=== PATIENT | female | born 1960 | race American Indian/Alaskan Native ===

== ENCOUNTER 2018-06-06 19:30 | Emergency (ER) | payer OTHER ==
--- NOTE | 2018-06-06 20:27 | Emergency Department Report ---
Chief Complaint: Chest Pain Stated Complaint: PAIN IN CHEST UNDERARM AND BACK Time Seen by Provider: 06/06/18 20:11 - HPI History of Present Illness: pt presents to the ED with c/o right sided CP that radiates to the back that began this morning she states she has CP daily she states she has edema to the right anterior chest No N/V PMHx HTN, HLD on carvedilol, lisinopril, hctz (+) smoker 1/2 PPD MSE screening note: Focused history performed Due to findings the following was ordered: CP protocol ED Disposition for MSE Condition: Stable
[2018-06-06 20:38] LABS: Basophils % (Auto) 0.9 % (0.0-1.8); Eosinophils # (Auto) 0.1 K/mm3 (0.0-0.4); Eosinophils % (Auto) 2.2 % (0.0-4.3); Hemoglobin 12.3 gm/dl (10.1-14.3); Lymphocytes # (Auto) 2.3 K/mm3 (1.2-5.4); Mean Corpuscular HGB Conc 33 % (30-34); Mean Corpuscular Volume 75 fl (79-97); Monocytes # (Auto) 0.5 K/mm3 (0.0-0.8); Platelet Count 206 K/mm3 (140-440); Red Blood Count 5.08 M/mm3 (3.65-5.03); Red Cell Distribution Width 18.4 % (13.2-15.2)
[2018-06-06 20:51] LABS: INR 0.95 (0.87-1.13)
[2018-06-06 20:52] LABS: Partial Thromboplastin Time 24.9 Sec. (24.2-36.6)
[2018-06-06 21:07] LABS: Alanine Aminotransferase 27 units/L (7-56); Albumin 4.3 g/dL (3.9-5); BUN/Creatinine Ratio 23; Blood Urea Nitrogen 18 mg/dL (7-17); Calcium 10.8 mg/dL (8.4-10.2); Hemolysis Index 9
--- NOTE | 2018-06-06 21:29 | XRay Report ---
PROCEDURE: XR CHEST ROUTINE 2V HISTORY: Chest Pain FINDINGS: Frontal and lateral views of the chest were acquired. There is cardiomegaly. There is no ev idence of congestive heart failure. There is no consolidative pulmonary infiltrate. The lungs are hyp erinflated. IMPRESSION: Cardiomegaly This document is electronically signed by Velasquez Vines MD., June 06 2018 09:27:14 PM ET
--- NOTE | 2018-06-06 23:16 | Emergency Department Report ---
ED General Adult HPI - General Chief complaint: Chest Pain Stated complaint: PAIN IN CHEST UNDERARM AND BACK Time Seen by Provider: 06/06/18 20:11 Source: patient Mode of arrival: Ambulatory Limitations: No Limitations - History of Present Illness Initial comments: 58-year-old -[place] female comes in today for lump on right trapezius and intermittent chest pain all day. Patient reports that she has chest pain daily and will often take an aspirin which she reports to relieve the pain. Patient reports it does not hurt or itch is just uncomfortable. She denies any shortness of breath nausea vomiting or fever. Patient has a past medical h istory hypertension hypercholesterolemia. No surgeries. She is followed by [facility]. Location: neck Worsens with: none Associated Symptoms: chest pain (which is her normal) - Related Data Home Medications Medication Instructions Recorded Confirmed Last Taken Aspirin BABY CHEW TAB 1 tab PO DAILY 12/20/16 12/20/16 Unknown AtorvaSTATin 20 mg PO HS 12/20/16 12/20/16 Unknown Coreg 12.5 mg PO BID 12/20/16 12/20/16 Unknown HCTZ 25 mg PO DAILY 12/20/16 12/20/16 Unknown Lisinopril 20 mg PO DAILY 12/20/16 12/20/16 Unknown Allergies Allergy/AdvReac Type Severity Reaction Status Date / Time codeine Allergy Hives Verified 12/20/16 05:19 ED Review of Systems ROS: Stated complaint: PAIN IN CHEST UNDERARM AND BACK Other details as noted in HPI ED Past Medical Hx - Past Medical History Hx Hypertension: Yes Additional medical history: High Cholesterol - Social History Smoking Status: Current Every Day Smoker Substance Use Type: None - Medications Home Medications: Home Medications Medication Instructions Recorded Confirmed Last Taken Type Aspirin BABY CHEW TAB 1 tab PO DAILY 12/20/16 12/20/16 Unknown History AtorvaSTATin 20 mg PO HS 12/20/16 12/20/16 Unknown History Coreg 12.5 mg PO BID 12/20/16 12/20/16 Unknown History HCTZ 25 mg PO DAILY 12/20/16 12/20/16 Unknown History Lisinopril 20 mg PO DAILY 12/20/16 12/20/16 Unknown History ED Physical Exam - General Limitations: No Limitations General appearance: alert - Head Head exam: Present: atraumatic, normocephalic - Eye Eye exam: Present: normal appearance - ENT ENT exam: Present: mucous membranes moist, other (right side of both the trapeze and neck. Is some soft tissue fullness) - Respiratory Respiratory exam: Present: normal lung sounds bilaterally. Absent: respiratory distress - Cardiovascular Cardiovascular Exam: Present: regular rate, normal rhythm. Absent: systolic murmur, diastolic murmur, rubs, gallop - GI/Abdominal GI/Abdominal exam: Present: soft, normal bowel sounds - Back Exam Back exam: Present: normal inspection, full ROM - Neurological Exam Neurological exam: Present: alert, oriented X3 - Psychiatric Psychiatric exam: Present: normal affect, normal mood - Skin Skin exam: Present: warm, dry, intact, normal color. Absent: rash ED Course Vital Signs 06/06/18 20:23 Temperature 98.6 F Pulse Rate 69 Respiratory 18 Rate Blood Pressure 182/86 O2 Sat by Pulse 98 Oximetry ED Medical Decision Making - Lab Data Result diagrams: 06/06/18 20:30 06/06/18 20:30 Laboratory Tests 06/06/18 06/06/18 06/06/18 20:30 20:30 20:30 WBC 4.9 RBC 5.08 H Hgb 12.3 Hct 38.0 MCV 75 L MCH 24 L MCHC 33 RDW 18.4 H Plt Count 206 Lymph % (Auto) 48.0 H Nuckolls % (Auto) 11.0 H Eos % (Auto) 2.2 Baso % (Auto) 0.9 Lymph # 2.3 Nuckolls # 0.5 Eos # 0.1 Baso # 0.0 Seg Neutrophils % 37.9 L Seg Neutrophils # 1.8 PT 13.3 INR 0.95 APTT 24.9 Sodium 139 Potassium 3.7 Chloride 102.4 Carbon Dioxide 27 Anion Gap 13 BUN 18 H Creatinine 0.8 Estimated GFR > 60 BUN/Creatinine Ratio 23 Glucose 114 H Calcium 10.8 H Total Bilirubin 0.40 AST 24 ALT 27 Alkaline Phosphatase 105 Troponin T < 0.010 Total Protein 7.3 Albumin 4.3 Albumin/Globulin Ratio 1.4 06/06/18 23:26 WBC RBC Hgb Hct MCV MCH MCHC RDW Plt Count Lymph % (Auto) Nuckolls % (Auto) Eos % (Auto) Baso % (Auto) Lymph # Nuckolls # Eos # Baso # Seg Neutrophils % Seg Neutrophils # PT INR APTT Sodium Potassium Chloride Carbon Dioxide Anion Gap BUN Creatinine Estimated GFR BUN/Creatinine Ratio Glucose Calcium Total Bilirubin AST ALT Alkaline Phosphatase Troponin T < 0.010 Total Protein Albumin Albumin/Globulin Ratio - Radiology Data Radiology results: report reviewed Patient: UMAIR BECKER MR#: [id number] : 1960 Acct:[id number] Age/Sex: 58 / F ADM Date: 06/06/18 Loc: ED Attending Dr: Ordering Physician: MEHDI BONE Date of Service: 06/06/18 Procedure(s): XR chest routine 2V Accession Number(s): [id number] cc: MEHDI BONE Fluoro Time In Minutes: PROCEDURE: XR CHEST ROUTINE 2V HISTORY: Chest Pain FINDINGS: Frontal and lateral views of the chest were acquired. There is car diomegaly. There is no evidence of congestive heart failure. There is no consolidative pulmonary in filtrate. The lungs are hyperinflated. IMPRESSION: Cardiomegaly This document is electronically signed by Velasquez Vines MD., June 06 2018 09:27:14 PM ET Transcribed By: JUAN Dictated By: VELASQUEZ VINES MD Electronically Authenticated By: VELASQUEZ VINES MD Signed Date/Time: 06/06/182128 DD/ 00 TD/TT: 06/06/182100 Patient: UMAIR BECKER MR#: [id number] : 1960 Acct:[id number] Age/Sex: 58 / F ADM Date: 06/06/18 Loc: ED Attending Dr: Ordering Physician: MEHDI LE Date of Service: 06/06/18 Procedure(s): CT neck w con Accession Number(s): [id number] cc: MEHDI LE PROCEDURE: CT NECK W CON TECHNIQUE: Routine axial imaging was obtained of the soft tissues of the neck following the intravenous injection of iodinated contrast. Sagittal and coronal reconstructions were reviewed. HISTORY: mass on right side of neck COMPARISONS: None FINDINGS: Images along the skull base reveal patchy mucosal thickening in the ethmoid air cells with secretions in the sphenoid sinus. The mastoid air cells are well pneumatized. The airway appears normal. The parotid and submandibular glands appear normal. There is no evidence of lymphadenopathy in any compartment. The epiglottis and subglottic airway appear normal. The vascular structures enhance normally. The thyroid gland is symmetric in size. There is no evidence of mass or inflammatory process along the base of the neck on the right side or upper shoulder. The nasopharyngeal structures appear normal. The skeletal structures reveal disc degeneration in the mid cervical spine. IMPRESSION: No evidence of any mass or inflammatory process along the base of the neck on the right side and shoulder area. Patchy bilateral ethmoidal sinusitis with secretions in the sphenoid sinus. 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 This document is electronically signed by Caren Caputo MD., June 07 2018 12:1 2:11 AM ET Transcribed By: RB Dictated By: CAREN CAPUTO MD Electronically Authenticated By: CAREN CAPUTO MD Signed Date/Time: 06/07/18 0014 DD/ 52 TD/TT: 06/06/18 6503 - Medical Decision Making Patient has been evaluated by this provider ACC. CT neck shows no acute abnormalities. Chest x-ray shows no acute abnormalities. 2 troponins are negative. Patient is to follow-up with her primary care provider if her symptoms persist or gets worse. Critical care attestation.: If time is entered above; I have spent that time in minutes in the direct care of this critically ill patient, excluding procedure time. ED Disposition Clinical Impression: Fullness of neck, Chest wall discomfort Disposition: DC-01 TO HOME OR SELFCARE Is pt being admited?: No Does the pt Need Aspirin: No Condition: Stable Additional Instructions: Please follow up with her primary care provider if his symptoms persist or gets worse. Your xrays were no acute abnormalities. Referrals: MARIBELL TRUONG MD [Primary Care Provider] - 3-5 Days Forms: Work/School Release Form(ED)
--- NOTE | 2018-06-07 00:14 | Cat Scan Report ---
PROCEDURE: CT NECK W CON TECHNIQUE: Routine axial imaging was obtained of the soft tissues of the neck following the intraven ous injection of iodinated contrast. Sagittal and coronal reconstructions were reviewed. HISTORY: mass on right side of neck COMPARISONS: None FINDINGS: Images along the skull base reveal patchy mucosal thickening in the ethmoid air cells with secretions in the sphenoid sinus. The mastoid air cells are well pneumatized. The airway appears normal. The parotid and submandibular glands appear normal. There is no evidence o f lymphadenopathy in any compartment. The epiglottis and subglottic airway appear normal. The vascula r structures enhance normally. The thyroid gland is symmetric in size. There is no evidence of mass o r inflammatory process along the base of the neck on the right side or upper shoulder. The nasopharyn geal structures appear normal. The skeletal structures reveal disc degeneration in the mid cervical s pine. IMPRESSION: No evidence of any mass or inflammatory process along the base of the neck on the right side and shou lder area. Patchy bilateral ethmoidal sinusitis with secretions in the sphenoid sinus. 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 This document is electronically signed by Rik Caputo MD., June 07 2018 12:12:11 AM ET
[2018-06-07 19:40] VITALS: BP 182/86
== END 2018-06-07 01:00 | disposition home or self-care (01) ==
LOC: ED 19:30
DX: M54.2 Cervicalgia (principal); R07.89 Other chest pain; I10 Essential (primary) hypertension; E78.00 Pure hypercholesterolemia, unspecified; F17.200 Nicotine dependence, unspecified, uncomplicated; Z79.82 Long term (current) use of aspirin; Z88.5 Allergy status to narcotic agent
CPT/HCPCS: 36415; 70491; 71046; 80053; 84484; 85025; 85610; 85730; 93005; 93010; 99284; Q9967